=== PATIENT | female | born 1975 | race Caucasian/White ===

== ENCOUNTER 2021-04-06 13:56 | Inpatient (IN) | payer OTHER ==
[~2021-04-06] VITALS: Ht 167.6 cm; Wt 96.6 kg
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
[2021-04-06 14:11] VITALS: BP 111/67
[2021-04-06 19:54] LABS: HEMATOCRIT 37.2 % (37.0-47.0); HEMOGLOBIN 12.3 gm/dL (12.0-15.0); MCH 29.3 pg (26.0-34.0); MCHC 33.2 g/dL (28.0-37.0); MCV 88.4 fL (80.0-100.0); RBC 4.21 mil/uL (4.20-5.00); WBC 13.2 thou/uL (4.0-11.0)
[2021-04-06 20:01] LABS: CALCIUM 8.5 mg/dL (8.5-10.1); CREATININE 1.3 mg/dL (0.6-1.0); POTASSIUM 4.1 mmol/L (3.5-5.1)
[2021-04-06 20:09] LABS: ALBUMIN 3.4 g/dL (3.4-5.0); TOTAL BILIRUBIN 0.2 mg/dL (0.2-1.0); TOTAL PROTEIN 6.7 g/dL (6.4-8.2)
[2021-04-06] MEDS ORDERED: TROKENDI XR200 MG PO (20:11)
[2021-04-06] MEDS ORDERED: ALPRAZOLAM 0.50.5 M1 PO (20:11)
[2021-04-06] MEDS ORDERED: MIRAPEX0.5 MG PO (20:12)
[2021-04-06] MEDS ORDERED: TIZANIDINE HCL4 M2 PO (20:13)
[2021-04-06] MEDS ORDERED: KEPPRA 500 MG500 MG PO (20:14)
[2021-04-06] MEDS ORDERED: TRAZODONE HCL100 MG PO (22:50)
--- NOTE | 2021-04-07 07:10 | EKG ---
[address] [place] [address] ELECTROCARDIOGRAM REPORT Name: ANDREA RAMIREZ Room #: 170-11 ADM IN M.R.#: [id number] Admission: 04/06/21 Attend Phys: Ralph Young MD Discharge: Date of : 79 Report #: [id number] [facility] ED Test Date: 2021-04-06 Test Time: 14:04:23 Pat Name: ANDREA RAMIREZ Department: Room: 170 11 Gender: F Social Contact Worker: LUISITO : 1975 Requested By: Pam Ham Order Number: [id number] MD: Jeff Spear Measurements Intervals [place] Rate: 93 P: 30 WA: 159 QRS: 0 QRSD: 100 T: 34 QT: 378 QTc: 471 Interpretive Statements Sinus rhythm Probable left atrial enlargement RSR' in V1 or V2, right VCD or RVH No previous ECG available for comparison Electronically Signed On 04-07-2021 7:09:55 CDT by Jeff Spear [email or web address] <ELECTRONICALLY SIGNED> By: Jeff Spear MD, [facility] 04/07/21 [id number] Jeff Spear MD, FACC /EPI
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
[2021-04-07] MEDS ORDERED: DIPHENHIST50 MG PO (14:57)
[2021-04-07] MEDS ORDERED: ACETAMINOPHEN325 M1 PO (14:57)
[2021-04-07] MEDS ORDERED: PEPCID20 MG PO (14:57)
[2021-04-07] MEDS ORDERED: PREDNISONE 20 M20 M1 PO (14:57)
[2021-04-07 15:03] VITALS: BP 98/47
[2021-04-07 15:26] VITALS: BP 98/47
== END 2021-04-07 15:25 | disposition home or self-care (01) | DRG 916 ==
LOC: ER 13:56 → EROBS 18:54
PROVIDERS: ADMIT Internal Medicine; ATTEND Internal Medicine
DX: T88.6XXA Anaphylactic reaction due to adverse effect of correct drug or medicament properly administered, initial encounter (principal); G40.409 Other generalized epilepsy and epileptic syndromes, not intractable, without status epilepticus; E66.01 Morbid (severe) obesity due to excess calories; Z20.822 Contact with and (suspected) exposure to COVID-19; Z88.8 Allergy status to other drugs, medicaments and biological substances; Z88.6 Allergy status to analgesic agent; Z88.1 Allergy status to other antibiotic agents; Z91.040 Latex allergy status; Z88.0 Allergy status to penicillin; Z91.013 Allergy to seafood; Y92.89 Other specified places as the place of occurrence of the external cause; Z68.34 Body mass index [BMI] 34.0-34.9, adult